=== PATIENT | female | born 1975 | race African-American/Black ===

== ENCOUNTER 2016-07-11 21:50 | Emergency (ER) | payer OTHER ==
[~2016-07-11] VITALS: Ht 162.6 cm; Wt 72.0 kg
[~2016-07-11 21:50] MED LIST: BACT800T5 PO; LISI10TA3 PO; ROBA750T PO
[2016-07-11 21:52] VITALS: BP 135/87; PULSE 87; RESP 16; TEMP 98.3; O2SAT 98
[2016-07-11] MEDS ORDERED: CYCL1TAB29 PO (23:03)
--- NOTE | 2016-07-11 23:24 | PD ---
HPI Chief Complaint: Injury Time Seen by Provider: 23:20 Travel History International Travel<30 days: No Contact w/Intl Traveler<30days: No Traveled to known affect area: No History of Present Illness HPI 40-year-old black female presents to emergency Department with complaints of right knee pain 2 weeks. She states that she had some mild swelling initially. She was seen by her doctor approximately one week ago for another complaint and she had mentioned it to her doctor. He had advised her to take ibuprofen and continue to take her Flexeril for her back. She states that her knee as persistently became more painful swollen. She states that occasionally she'll get jolts of pain when she bears weight on it causing her knee to buckle a little bit. She denies any locking. She denies any direct trauma. She does state that the pain does radiate down into her calf at times. She denies any numbness, tingling. No shortness of breath or wheezing. No palpitations or chest pain. No calf swelling or redness. She does smoke cigarette. No sedentary activity. No control. PFSH Past Medical History Narrative Medical Hypertension Heart Rhythm Problems: No Cardiac Catheterization: No Cardiovascular Problems: Yes (htn) High Cholesterol: No Congestive Heart Failure: No Diabetes: No Diminished Hearing: No Hypertension: Yes Tetanus Vaccination: < 5 Years Past Surgical History Narrative Surgical Section: Yes Coronary Artery Bypass Graft: No Social History Alcohol Use: Yes (OCCASIONAL) Tobacco Use: Yes (1-2 CIGARETTES 1-2 TIMES PER WEEK) Substance Use: No Allergies-Medications (Allergen,Severity, Reaction): Coded Allergies: Erythromycin (Verified Allergy, Severe, SWELING & ITCH, 01/20/16) Aspirin (Verified Allergy, Mild, 01/20/16) HIVES Penicillin (Verified Allergy, Mild, 01/20/16) VOMITING AND HIVES Reported Meds & Prescriptions Reported Meds & Active Scripts Active Lisinopril 10 Mg Tab 10 Mg PO DAILY Reported Flexeril (Cyclobenzaprine HCl) 10 Mg Tab 10 Mg PO DAILY Review of Systems Except as stated in HPI: all other systems reviewed are Neg Physical Exam Narrative GENERAL: This is a well-nourished, well-developed patient, in no apparent distress. SKIN: No rashes, ecchymoses or lesions. Warm and dry. HEAD: Atraumatic. Normocephalic. EYES: PERRL, EOMI, no discharge or injection. No scleral icterus. EARS: Clear NOSE: Nasal turbinates appear normal. THROAT: Mucosa pink and moist. Airway patent. NECK: Trachea midline. supple, moves head freely. LUNGS: Clear to auscultation. CV: Regular in rhythm. ABDOMEN: Soft nontender. EXT: No clubbing cyanosis or edema. Examination the right lower shoulder reveals mild swelling in the knee. She has full extension but has somewhat limited flexion due to pain. No anterior posterior draw. No medial lateral collateral ligament instability. She does complain of pain with palpation the posterior components of the knee. There is no erythema or warmth. No cords. No Homans sign. She has intact sensation with good distal pulses. Normal color , normal temperature, and normal size. Data Data Last Documented VS Vital Signs Date Time Temp Pulse Resp B/P Pulse Ox O2 Delivery O2 Flow Rate FiO2 07/11/16 21:52 98.3 87 16 135/87 98 Room Air Orders Knee, Complete (4vws) (07/11/16 23:19) Acetamin-Hydrocod 325-5 Mg (Jacobson 5-325 (07/11/16 23:30) Crutches (07/11/16 23:51) MDM Medical Decision Making Medical Screen Exam Complete: Yes Emergency Medical Condition: Yes Medical Record Reviewed: Yes Interpretation(s) Right knee: Negative for acute fracture. No degenerative changes. Differential Diagnosis MDM: High Differential diagnoses: Fracture, sprain, strain, dislocation, contusion, neurovascular injury Narrative Course Patient's given Lortab 5 a grams by mouth for pain. The patient can take ibuprofen. She had been taking at home at her doctor's request. She'll be given meloxicam and Lortab. Crutches. She is advised to follow-up with her doctor for a cortisone shot and possible MRI. This is right knee pain. Diagnosis Primary Impression: Right knee pain Qualified Code: M25.561 - Acute pain of right knee Patient Instructions: General Instructions Departure Forms: Tests/Procedures, Work Release Special Instructions: No work 3 days. Additional Instructions: Rest. Elevation. Ice packs for the next 3 days. crutches. No weight-bearing and then progress to weight-bearing as tolerated. Medications as directed Follow-up with an orthopedist or your doctor in one week. Return to the ER if any problems Med/Other Pt SpecificInfo: Prescription(s) given Scripts Meloxicam (Mobic)15 Mg Tab15 Mg PO DAILY #30 TAB Prov:Nilay Cornoa MD 07/11/16 Hydrocodone-Acetaminophen (Lortab)5-325 Mg Tab1 Tab PO Q6H PRN (PAIN) #20 TAB Prov:Nilay Corona MD 07/11/16 Disposition: 01 DISCHARGE HOME Condition: Stable Errol Xie Jul 11, 2016 23:24
[2016-07-11] MEDS ORDERED: ACETAMINOPHEN/HYDROcodone 325 MG/5 MG TAB PO ONE (23:30)
[2016-07-11] MEDS ORDERED: MOBI15TA PO (23:53)
[2016-07-11] MEDS ORDERED: HYDR-3533 PO (23:53)
--- NOTE | 2016-07-11 23:59 | RADRPT ---
EXAM DATE/TIME: 07/11/2016 23:37 [facility] COMPARISON: No previous studies available for comparison. INDICATIONS : Right lateral knee pain with swelling. No known injury. MEDICAL HISTORY : None. SURGICAL HISTORY : None. ENCOUNTER: Initial ACUITY: 2 days PAIN SCORE: 8/10 LOCATION: Right lateral knee FINDINGS: Four view examination of the right knee demonstrates no evidence of fracture or dislocation. Bony mi neralization is normal. The articular surfaces are intact. The suprapatellar soft tissues have a no rmal configuration. CONCLUSION: Normal examination for a patient of this age. Shon Clements MD on July 11, 2016 at 23:57 Board Certified Radiologist. This report was verified electronically.
== END 2016-07-12 00:41 | disposition home or self-care (01) ==
LOC: NEPB 21:50
DX: M25.561 Pain in right knee (principal); I10 Essential (primary) hypertension; Z72.0 Tobacco use; Z88.0 Allergy status to penicillin; Z88.6 Allergy status to analgesic agent; Z88.1 Allergy status to other antibiotic agents
CPT/HCPCS: 73564; 99283; E0113

== ENCOUNTER 2016-10-16 05:36 | Emergency (ER) | payer OTHER ==
[~2016-10-16] VITALS: Ht 175.3 cm; Wt 65.0 kg
[~2016-10-16 05:36] MED LIST changes: -PRED-503 PO
[2016-10-16 05:38] VITALS: BP 162/99; PULSE 80; RESP 16; TEMP 98.9; O2SAT 99
--- NOTE | 2016-10-16 06:17 | PD ---
HPI Chief Complaint: ENT Complaint Time Seen by Provider: 06:15 Travel History International Travel<30 days: No Contact w/Intl Traveler<30days: No Traveled to known affect area: No History of Present Illness HPI 41-year-old black female presents to emergency Department with complaints of sore throat. She states that she was in her normal state of health earlier this week. She states that she was in [place] and had gotten home on Sunday. Last evening she developed some mild sore throat and was much worse this morning when she woke up. She states that she has slight hoarse voice and difficulty swallowing due to pain. She denies any fever chills. No ear pain, runny nose, cough or congestion. No abdominal pain or diarrhea. No urine symptoms. No shortness of breath or wheezing. PFSH Past Medical History Narrative Medical Depression, hypertension, Heart Rhythm Problems: No Cardiac Catheterization: No Cardiovascular Problems: Yes (htn) High Cholesterol: No Congestive Heart Failure: No Diabetes: No Diminished Hearing: No Hypertension: Yes Tetanus Vaccination: < 5 Years ?: Not Past Surgical History Narrative Surgical Section: Yes Coronary Artery Bypass Graft: No Social History Alcohol Use: Yes (OCCASIONAL) Tobacco Use: No Substance Use: No Allergies-Medications (Allergen,Severity, Reaction): Coded Allergies: Erythromycin (Verified Allergy, Severe, SWELING & ITCH, 10/16/16) Aspirin (Verified Allergy, Mild, 10/16/16) HIVES Penicillin (Verified Allergy, Mild, 10/16/16) VOMITING AND HIVES Reported Meds & Prescriptions Reported Meds & Active Scripts Active Deltasone (Prednisone) 20 Mg Tab 20 Mg PO BID Mobic (Meloxicam) 15 Mg Tab 15 Mg PO DAILY Lortab (Hydrocodone-Acetaminophen) 5-325 Mg Tab 1 Tab PO Q6H PRN Lisinopril 10 Mg Tab 10 Mg PO DAILY Reported Flexeril (Cyclobenzaprine HCl) 10 Mg Tab 10 Mg PO DAILY Review of Systems Except as stated in HPI: all other systems reviewed are Neg Physical Exam Narrative GENERAL: Well-developed, well-nourished in no acute distress. Nontoxic appearing. HEAD: Normocephalic, atraumatic. EYES: Pupils equal round and reactive. Extraocular motions intact. No scleral icterus. No injection or drainage. ENT: TMs clear without erythema. The external auditory canals clear. Nose: clear . Posterior pharynx is mildly erythematous no and moist. No tonsillar edema or exudate. Uvula midline but is very edematous. Airway patent. NECK: Trachea midline.Supple, nontender, moves head freely. No central bony tenderness or spasm. CARDIOVASCULAR: Regular rate and rhythm without murmurs, gallops, or rubs. RESPIRATORY: Clear to auscultation. Breath sounds equal bilaterally. No wheezes , rales, or rhonchi. GASTROINTESTINAL: Abdomen soft, non-tender, nondistended. No hepato-splenomegaly , or palpable masses. No guarding. EXTREMITIES: No clubbing, cyanosis, or edema. No joint tenderness, effusion, or edema noted. BACK: Nontender without deformity or crepitance. No flank tenderness. Data Data Last Documented VS Vital Signs Date Time Temp Pulse Resp B/P Pulse Ox O2 Delivery O2 Flow Rate FiO2 10/16/16 05:38 98.9 80 16 162/99 99 Orders Group A Rapid Strep Screen (10/16/16 06:14) Strep Culture (Group A) (10/16/16 06:15) Prednisone (Deltasone) (10/16/16 07:00) MDM Medical Decision Making Medical Screen Exam Complete: Yes Emergency Medical Condition: Yes Medical Record Reviewed: Yes Interpretation(s) Strep: Negative Differential Diagnosis MDM: High Differential diagnoses: Strep throat, viral pharyngitis, mono, peritonsillar abscess, retropharyngeal abscess, Juan A's angina Narrative Course Rapid strep is been ordered. The rapid strep was negative. Patient given prednisone 40 by mouth. Diagnosis Primary Impression: Viral pharyngitis Patient Instructions: General Instructions Additional Instructions: Rest. Force fluids. Saltwater gargles. Tylenol and Advil. Chloraseptic [place] Cepastat lozenge. Prednisone Follow-up with a primary care doctor in one week. Return to the ER if any problems. Med/Other Pt SpecificInfo: Prescription(s) given Scripts Prednisone (Deltasone)20 Mg Tab20 Mg PO BID #10 TAB Prov:Sterling Marin MD 10/16/16 Disposition: 01 DISCHARGE HOME Condition: Stable Errol Xie October 16, 2016 06:17
[2016-10-16] MEDS ORDERED: PRED-503 PO (06:55)
[2016-10-16] MEDS ORDERED: predniSONE 20 MG TAB PO ONE (07:00)
[2016-10-16 07:07] VITALS: BP 153/91; PULSE 73; RESP 16; O2SAT 100
== END 2016-10-16 07:18 | disposition home or self-care (01) ==
LOC: NEPD 05:36
DX: J02.9 Acute pharyngitis, unspecified (principal); B97.89 Other viral agents as the cause of diseases classified elsewhere; I10 Essential (primary) hypertension; Z86.59 Personal history of other mental and behavioral disorders; Z86.79 Personal history of other diseases of the circulatory system
CPT/HCPCS: 87081; 87880; 99283; J7512

== ENCOUNTER → 2016-10-16 | Outpatient (CLI) | payer OTHER ==
[~2016-10-16] MED LIST changes: -BACT800T5 PO; +CYCL1TAB29 PO; +HYDR-3533 PO; +MOBI15TA PO; +PRED-503 PO; -ROBA750T PO
[2016-10-16 07:49] LABS: MEAN CELL VOLUME 85.3 FL (80.0-100.0); MEAN CORPUSCULAR HEMOGLOBIN 28.2 PG (27.0-34.0); MEAN CORPUSCULAR HGB CONC 33.1 % (32.0-36.0); PLATELET COUNT 211 TH/MM3 (150-450); RED BLOOD COUNT 4.46 MIL/MM3 (4.00-5.30); REVIEW FLAG FINAL; WHITE BLOOD COUNT 14.4 TH/MM3 (4.0-11.0)
[2016-10-16 08:35] LABS: ALKALINE PHOSPHATASE 49 U/L (45-117); ALT (GPT) 22 U/L (10-53); ANION GAP 8 MEQ/L (5-15); AST (GOT) 16 U/L (15-37); BICARBONATE 25.8 MEQ/L (21.0-32.0); BLOOD UREA NITROGEN 9 MG/DL (7-18); CHLORIDE 103 MEQ/L (98-107); GLOMERULAR FILTRATION RATE 83 ML/MIN (>89); GLUCOSE,FASTING 83 MG/DL (74-99); HDL CHOLESTEROL 72.8 MG/DL (40.0-60.0); LDL CHOLESTEROL 83 MG/DL (0-99); POTASSIUM 4.3 MEQ/L (3.5-5.1); SODIUM (NA) 137 MEQ/L (136-145); TOTAL BILIRUBIN ADULT 0.3 MG/DL (0.2-1.0)
== END ==
LOC: CLAB 07:27
PROVIDERS: ATTEND Family Medicine
DX: Z01.419 Encounter for gynecological examination (general) (routine) without abnormal findings (principal)
CPT/HCPCS: 36415; 80053; 80061; 84443; 85027